=== PATIENT | male | born 1980 | race American Indian/Alaskan Native ===

== ENCOUNTER 2020-01-17 23:40 | Emergency (ER) | payer SELFPAY ==
[2020-01-18] MEDS ORDERED: diphenhydrAMINE 50 MG/ML VIAL ONE (04:00)
[2020-01-18] MEDS ORDERED: LORazepam 2 MG/ML VIAL ONE (04:00)
[2020-01-18] MEDS ORDERED: LORazepam 2 MG/ML VIAL IV ONE (04:04)
[2020-01-18] MEDS ORDERED: ZIPRASIDONE MESYLATE 20 MG VIAL IM ONE (04:04)
[2020-01-18] MEDS ORDERED: diphenhydrAMINE 50 MG/ML VIAL IV ONE (04:04)
[2020-01-18] MEDS ORDERED: WATER FOR INJ Sterile (PF) 10 ML IM ONE (04:11)
--- NOTE | 2020-01-18 04:11 | Emergency Department Report ---
<SURI KUMAR III - Last Filed: 01/18/20 06:36> ED Psych HPI - General Chief Complaint: Psych Stated Complaint: MH EVAL Time Seen by Provider: 01/18/20 03:38 Source: patient Mode of arrival: Ambulatory Limitations: Altered Mental Status - History of Present Illness Initial Comments: Patient is a 39-year-old male who presents emergency room with complaints of being nervous, hallucinations. Patient states he recently got out of custodial. Patient states he was wrong for correction. Patient states nobody cares about him. Patient states people are out to get him. Patient denies suicidal homicidal ideation. MD Complaint: altered mental status -: Sudden Associated Psychiatric Symptoms: racing thoughts, auditory hallucinations, visual hallucinations, delusions History of same: Yes Quality: constant Improves With: none Worsens With: none Context: significant life stressor Associated Symptoms: denies other symptoms. denies: confusion, headache, shortness of breath, nausea, vomiting, syncope, insomnia - Related Data Home Medications Medication Instructions Recorded Confirmed Last Taken AtorvaSTATin [Lipitor] 40 mg PO QHS 01/18/20 01/18/20 Unknown amLODIPine [Norvasc] 10 mg PO DAILY 01/18/20 01/18/20 Unknown atenoloL [Tenormin] 50 mg PO HS 01/18/20 01/18/20 Unknown lamoTRIgine [LaMICtal] 200 mg PO HS 01/18/20 01/18/20 Unknown Previous Rx's Medication Instructions Recorded Last Taken Type OLANzapine [Zyprexa] 10 mg PO DAILY #30 tablet 01/23/20 Unknown Rx hydrOXYzine PAMOATE [Vistaril] 25 mg PO BID PRN #60 capsule 01/23/20 Unknown Rx lamoTRIgine [Lamictal] 100 mg PO BID #60 tablet 01/23/20 Unknown Rx traZODone [Desyrel] 50 mg PO QHS #30 tab 01/23/20 Unknown Rx Allergies Allergy/AdvReac Type Severity Reaction Status Date / Time No Known Allergies Allergy Unverified 01/17/20 23:55 ED Review of Systems Constitutional: denies: chills, fever Eyes: denies: eye pain, eye discharge, vision change ENT: denies: ear pain, throat pain Respiratory: denies: cough, shortness of breath, wheezing Cardiovascular: denies: chest pain, palpitations Endocrine: no symptoms reported Gastrointestinal: denies: abdominal pain, nausea, diarrhea Genitourinary: denies: urgency, dysuria Musculoskeletal: denies: back pain, joint swelling, arthralgia Skin: denies: rash, lesions Neurological: denies: headache, weakness, paresthesias Psychiatric: as per HPI, auditory hallucinations. denies: anxiety, depression Hematological/Lymphatic: denies: easy bleeding, easy bruising ED Past Medical Hx - Past Medical History Previous Medical History?: No - Surgical History Past Surgical History?: No - Family History Family history: no significant - Social History Smoking Status: Never Smoker Substance Use Type: None - Medications Home Medications: Home Medications Medication Instructions Recorded Confirmed Last Taken Type AtorvaSTATin [Lipitor] 40 mg PO QHS 01/18/20 01/18/20 Unknown History amLODIPine [Norvasc] 10 mg PO DAILY 01/18/20 01/18/20 Unknown History atenoloL [Tenormin] 50 mg PO HS 01/18/20 01/18/20 Unknown History lamoTRIgine [LaMICtal] 200 mg PO HS 01/18/20 01/18/20 Unknown History OLANzapine [Zyprexa] 10 mg PO DAILY #30 tablet 01/23/20 Unknown Rx hydrOXYzine PAMOATE [Vistaril] 25 mg PO BID PRN #60 capsule 01/23/20 Unknown Rx lamoTRIgine [Lamictal] 100 mg PO BID #60 tablet 01/23/20 Unknown Rx traZODone [Desyrel] 50 mg PO QHS #30 tab 01/23/20 Unknown Rx ED Physical Exam - General Limitations: No Limitations General appearance: alert, in no apparent distress - Head Head exam: Present: atraumatic, normocephalic - Eye Eye exam: Present: normal appearance - ENT ENT exam: Present: mucous membranes moist - Neck Neck exam: Present: normal inspection - Respiratory Respiratory exam: Present: normal lung sounds bilaterally. Absent: respiratory distress - Cardiovascular Cardiovascular Exam: Present: regular rate, normal rhythm. Absent: systolic murmur, diastolic murmur, rubs, gallop - GI/Abdominal GI/Abdominal exam: Present: soft, normal bowel sounds - Rectal Rectal exam: Present: deferred - Extremities Exam Extremities exam: Present: normal inspection - Back Exam Back exam: Present: normal inspection - Neurological Exam Neurological exam: Present: alert, oriented X3 - Psychiatric Psychiatric exam: Present: agitated, anxious - Expanded Psychiatric Exam Expanded Focused psych exam: Present: pressured speech, internal stimuli, paranoid, restlessness, flight of ideas - Skin Skin exam: Present: warm, dry, intact, normal color. Absent: rash ED Course - Reevaluation(s) Reevaluation #1: Patient's initial evaluation done in triage. Patient refused to come to the back. Patient states he is scared to go to the back. Patient states people are out to get him. Patient had to be escorted by security to room 15. Patient will be given Geodon, Ativan and Benadryl. Patient was placed on a 1013. 01/18/20 03:38 Reevaluation #2: Patient's blood pressure is low. Patient is not tachycardic. Patient sleeping after the medications in room 15. 01/18/20 05:25 Reevaluation #3: Patient's blood pressure is slowly improving. Patient will receive another liter of fluid. 01/18/20 06:05 Reevaluation #4: Patient's current blood pressure is 106/80. Patient signed out to oncoming physician, Dr. Crowe for monitoring her blood pressure. 01/18/20 06:35 ED Medical Decision Making - Lab Data Result diagrams: 01/18/20 04:16 01/18/20 04:16 - Medical Decision Making Patient is a 39-year-old male that presents emergency room with acute psychosis. Patient very paranoid. Patient eventually became agitated and required physical restraint and to be placed in a isolation room. Given Geodon, Ativan and Benadryl. Patient responded well to treatment and was sleeping. Patient been became hypotensive and given fluids and his blood pressure responded well. Patient's labs were done. Patient's labs were essentially unremarkable. [facility] is medically cleared. Patient's final disposition will come from our psychiatry team. - Differential Diagnosis Psychosis, agitation, paranoia, hallucinations ED Disposition Clinical Impression: Acute psychosis, Agitation, Paranoia, Hypertension Disposition: DC-01 TO HOME OR SELFCARE Is pt being admited?: No Does the pt Need Aspirin: No Condition: Stable Instructions: Brief Psychotic Disorder (ED), Hypertension (ED) Additional Instructions: Please follow-up with a primary care physician in the next few days. Please follow-up with the [facility], or any of the outpatient psychiatric referrals that you were given by the psychiatric team. T ramin the medications as prescribed. Return to the emergency department with any worsening of your symptoms, thoughts of harming your self or others, or with any acute distress. Prescriptions: traZODone [Desyrel] 50 mg PO QHS #30 tab lamoTRIgine [Lamictal] 100 mg PO BID #60 tablet hydrOXYzine PAMOATE [Vistaril] 25 mg PO BID PRN #60 capsule PRN Reason: Anxiety OLANzapine [Zyprexa] 10 mg PO DAILY #30 tablet Referrals: PRIMARY CARE, [Primary Care Provider] - 2-3 Days [facility] [Outside] - 3-5 Days [facility] [Provider Group] - 3-5 Days Time of Disposition: 05:59 <KOURTNEY ELLINGTON - Last Filed: 01/23/20 10:54> ED Review of Systems ROS: Stated complaint: MH EVAL Other details as noted in HPI ED Course Vital Signs 01/17/20 01/18/20 01/18/20 23:56 05:22 06:01 Temperature 99.9 F H 98.1 F Pulse Rate 84 63 62 Respiratory 18 21 19 Rate Blood Pressure 153/100 Blood Pressure 71/34 80/37 [Left] O2 Sat by Pulse 98 98 98 Oximetry 01/18/20 01/18/20 01/18/20 06:36 07:04 08:36 Temperature 97.9 F Pulse Rate 68 63 97 H Respiratory 21 20 Rate Blood Pressure Blood Pressure 106/58 96/51 142/85 [Left] O2 Sat by Pulse 100 100 Oximetry 01/18/20 01/19/20 01/19/20 21:14 01:29 08:24 Temperature 99.3 F 98.1 F 97.8 F Pulse Rate 84 80 82 Respiratory 18 18 20 Rate Blood Pressure Blood Pressure 166/97 166/96 180/110 [Left] O2 Sat by Pulse 97 96 100 Oximetry 01/19/20 01/19/20 01/20/20 19:00 20:52 02:00 Temperature 97.1 F L 98.6 F Pulse Rate 79 88 Respiratory 18 18 18 Rate Blood Pressure Blood Pressure 169/89 148/84 [Left] O2 Sat by Pulse 100 100 100 Oximetry 01/20/20 01/21/20 01/22/20 19:30 20:31 09:10 Temperature 98.5 F 98.6 F Pulse Rate 82 91 H Respiratory 18 16 20 Rate Blood Pressure Blood Pressure 136/79 162/106 [Left] O2 Sat by Pulse 100 100 Oximetry 01/22/20 01/22/20 01/22/20 10:13 10:41 19:01 Temperature Pulse Rate 103 H 91 H Respiratory 18 Rate Blood Pressure 151/100 Blood Pressure 151/100 [Left] O2 Sat by Pulse 98 98 Oximetry 01/22/20 01/23/20 01/23/20 20:48 02:07 08:34 Temperature 99.0 F 98.1 F 97.6 F Pulse Rate 66 66 74 Respiratory 18 18 18 Rate Blood Pressure Blood Pressure 118/76 114/69 171/102 [Left] O2 Sat by Pulse 100 100 100 Oximetry ED Medical Decision Making - Lab Data Result diagrams: 01/18/20 04:16 01/18/20 04:16 - Medical Decision Making Patient has been cleared by the psychiatric team. Prescriptions have been written for the patient by the psychiatric team. He has been given outpatient referrals. He has been instructed to return to the emergency department with any worsening of his symptoms, thoughts of harming himself or others, or with any acute distress. Critical care attestation.: If time is entered above; I have spent that time in minutes in the direct care of this critically ill patient, excluding procedure time. ED Disposition Is pt being admited?: No
[2020-01-18 04:44] LABS: Basophils % (Auto) 0.4 % (0.0-1.8); Eosinophils % (Auto) 0.4 % (0.0-4.3); Hemoglobin 14.3 gm/dl (11.8-15.2); Lymphocytes # (Auto) 2.7 K/mm3 (1.2-5.4); Lymphocytes % (Auto) 23.5 % (13.4-35.0); Mean Corpuscular HGB Conc 32 % (32-34); Mean Corpuscular Volume 84 fl (84-94); Monocytes # (Auto) 0.7 K/mm3 (0.0-0.8); Monocytes % (Auto) 6.3 % (0.0-7.3); Platelet Count 266 K/mm3 (140-440); Red Blood Count 5.39 M/mm3 (3.65-5.03); Red Cell Distribution Width 15.7 % (13.2-15.2)
[2020-01-18 04:51] LABS: BUN/Creatinine Ratio 11; Blood Urea Nitrogen 17 mg/dL (9-20); Hemolysis Index 14
[2020-01-18] MEDS ORDERED: SODIUM CHLORIDE 0.9% 1000 ML 1,000 ML ONE (05:15)
[2020-01-18] MEDS ORDERED: SODIUM CHLORIDE 0.9% 1000 ML 1,000 ML IV ONE ×2 (05:26→06:06)
[2020-01-18] MEDS ORDERED: LORazepam 1 MG TAB PO ONE (11:27)
[2020-01-18] MEDS ORDERED: NICOTINE 21 MG/24 HR PATCH TD ONE (11:27)
[2020-01-18 16:24] LABS: Bilirubin,Urine NEG (Negative); Blood,Urine SM (Negative); Color,Urine Yellow (Yellow); Mucus,Urine 1+ /HPF
[2020-01-18 16:25] LABS: Amphetamine Screen,Urine PRESUMPTIVE NEGATIVE; Benzodiazepines Screen,Urine PRESUMPTIVE NEGATIVE; Cannabinoid Screen,Urine PRESUMPTIVE POSITIVE; Cocaine Screen,Urine PRESUMPTIVE NEGATIVE; Methadone Screen,Urine PRESUMPTIVE NEGATIVE; Opiate Screen,Urine PRESUMPTIVE NEGATIVE
--- NOTE | 2020-01-19 11:13 | Consultation ---
History of Present Illness - Reason for Consult Consult date: 01/19/20 Reason for consult: paranoia - History of Present Psychiatric Illness The patient's medical record was reviewed and the patient's progress was discussed with the nursing staff. The nurse note states the patient walking glez he states he is feeling very paranoid and anxious, he says you never know who knows who and he has done alot and his past is catching up to him redirected patient back to room will continue to monitor Unruly Payne is a 39y/o male patient who presented to the ER with paranoia after being released from intermediate yesterday. The patient states he felt like people were after him and felt unsafe. During my interview with the patient he is a/o x 3. He is cooperative. He is talkative. The patient is suspicious and paranoid. He is looking around as we are speaking. He denies SI/HI or hallucinations of any kind. He states, "I've never wanted to hurt myself or anybody, I just feel like people want to hurt me." The patient states, "I don't know why, but I'm just having a hard time adjusting to the free world." He says, "people and noises they scare me and I just feel like something's about to happen to me." He says "yesterday, I was doing crazy things." When asking the patient about his mood he first states, "okay." He then says "afraid." The patient denies any problems with his sleep cycle or appetite. He says he was diagnosed with "bipolar depression in intermediate." The patient says he normally takes "lamictal." The patient says he's "been off his medicine." He denies any illicit drug use, alcohol or nicotine use." He denies any past suicide attempts or psych admissions. Spoke with the patient's spouse. She says she is supportive of the patient and just wants him to get better. She says the patient's sister is willing to pick him up and take him to [place]. She states she is not really in agreement with this because she feels as if it would not benefit the patient. PAST PSYCHIATRIC HISTORY Diagnoses: bipolar depression Suicide attempts or Self-harm behavior: Denies Prior psychiatric hospitalizations: Denies Substance Abuse history: Denies Previous psychiatric medications tried: Lamictal Outpatient treatment: In intermediate PAST MEDICAL HISTORY: None reported Family Psychiatric History: None reported SOCIAL HISTORY Marital Status: Living Arrangements: with spouse Employment Status: Unemployed Access to guns/weapons: Denies Education: High school History of Abuse: Denies Legal History: Incarcerated prior REVIEW OF SYSTEMS Constitutional: Negative for weight loss ENT: Negative for stridor Respiratory: Negative for cough or hemoptysis All other systems reviewed and are negative MENTAL STATUS EXAMINATION General Appearance: Dressed appropriately Behavior: cooperative, suspicious Mood: "okay, afraid" Affect and affective range: Congruent with stated mood Speech: Normal volume, Regular rate and rhythm Thought Process: Goal directed Thought Content: Suicidal Ideation: Suicidal Homicidal Ideation: Homicidal Hallucinations: Denies Delusions: Yes, Paranoia Insight and Judgment: Limited Memory/Cognition: Normal Attention: Normal, Assessment (1) Bipolar disorder with psychotic features Current Visit: Yes Status: Acute (2) Generalized Anxiety Disorder TREATMENT PLAN Start Lamictal 25mg po BID Start Trazodone 50mg po daily Start Olanzapine 2.5mg po daily Start Vistaril 25mg po q6h prn anxiety Risks, benefits and alternatives of medications discussed with the patient, questions answered and consent obtained from patient. PSYCHOTHERAPY: Supportive psychotherapy provided MEDICAL: Per primary team DELIRIUM PRECAUTIONS: Please re-orient patient frequently, keep lights on during the day, and minimize benzodiazepines and opiates as these medications could worsen patient's confusion. TYPE CUTTER: DISPOSITION: Recommend acute inpatient psychiatric hospitalization at this time LEGAL STATUS: 1013 FOLLOW-UP: Will follow Thank you for the consult. Please contact with any questions and/or concerns. Medications and Allergies Allergies Allergy/AdvReac Type Severity Reaction Status Date / Time No Known Allergies Allergy Unverified 01/17/20 23:55 Home Medications Medication Instructions Recorded Confirmed Last Taken Type AtorvaSTATin [Lipitor] 40 mg PO QHS 01/18/20 01/18/20 Unknown History amLODIPine [Norvasc] 10 mg PO DAILY 01/18/20 01/18/20 Unknown History atenoloL [Tenormin] 50 mg PO HS 01/18/20 01/18/20 Unknown History lamoTRIgine [LaMICtal] 200 mg PO HS 01/18/20 01/18/20 Unknown History Mental Status Exam - Vital signs Last Vital Signs Temp 97.8 F 01/19/20 08:24 Pulse 82 01/19/20 08:24 Resp 20 01/19/20 08:24 BP 180/110 01/19/20 08:24 Pulse Ox 100 01/19/20 08:24 Results Result Diagrams: 01/18/20 04:16 01/18/20 04:16 Abnormal lab results 01/18/20 Range/Units Unknown Urine WBC (Auto) 26.0 H (0.0-6.0) /HPF All other labs normal.
[2020-01-19] MEDS ORDERED: ALPRAZolam 0.5 MG TAB ONE (11:18)
[2020-01-19] MEDS ORDERED: LORazepam 1 MG TAB PO ONE (11:20)
[2020-01-19] MEDS ORDERED: ALPRAZolam 0.5 MG TAB PO ONE (11:23)
[2020-01-19] MEDS ORDERED: ZIPRASIDONE MESYLATE 20 MG VIAL IM ONE ×3 (11:30→14:38)
[2020-01-19] MEDS ORDERED: hydrOXYzine PAMOATE 25 MG CAP PO PRN (11:30)
[2020-01-19] MEDS ORDERED: WATER FOR INJ Sterile (PF) 10 ML ONE (11:33)
[2020-01-19] MEDS: lamoTRIgine 25 MG TAB PO SCH ×2 (12:03→22:00)
[2020-01-19] MEDS: traZODone 50 MG TAB PO SCH (22:00)
--- NOTE | 2020-01-20 09:36 | Progress Note ---
Subjective - Reason for Consult Consult date: 01/20/20 Reason for consult: paranoia - Chief Complaint Chief complaint: The patient's medical record was reviewed and the patient's progress was discussed with the nursing station. The nurse note states the patient escorted back into ED by [employer] in handcuffs, pt walked into room with staff and security, handcuffs removed patient laid down. The patient began screaming about someone killing his whole family During my interview with the patient today, he is in the isolation room. The patient is awake. I spoke with the patient behind the glass. He is a/o x 3. He is paranoid and suspicious. He is talkative. He states to me "I heard my 's phone ringing in the other room." The patient then starts telling me, "tell Ananda flores and them I said get at me." I redirected the patient and told him he was no longer in [facility] but in the hospital. The patient shook his head and says, "Oh, man I don't know what's going on." He then starts ranting "someone is using me and people are making bad choices." The patient is redirected once again. He denies SI/HI. He also denies hallucinations of any kind. He describes his mood as "I don't know how I feel." REVIEW OF SYSTEMS Constitutional: Negative for weight loss ENT: Negative for stridor Respiratory: Negative for cough or hemoptysis All other systems reviewed and are negative MENTAL STATUS EXAMINATION General Appearance: Dressed appropriately Behavior: cooperative, suspicious Mood: "I don't know how I feel" Affect and affective range: Congruent with stated mood Speech: talkative Thought Process: Illogical, flight of ideas Thought Content: Suicidal Ideation: Denies Homicidal Ideation: Denies Hallucinations: Denies Delusions: Yes, Paranoia, suspicious Insight and Judgment: Limited Memory/Cognition: Normal Attention: Normal, Assessment (1) Bipolar disorder with psychotic features Current Visit: Yes Status: Acute (2) Generalized Anxiety Disorder TREATMENT PLAN Increased Lamictal 50mg po BID Increased Olanzapine 5mg po daily Start Geodon 20mg q6h prn agitation Risks, benefits and alternatives of medications discussed with the patient, questions answered and consent obtained from patient. PSYCHOTHERAPY: Supportive psychotherapy provided MEDICAL: Per primary team DELIRIUM PRECAUTIONS: Please re-orient patient frequently, keep lights on during the day, and minimize benzodiazepines and opiates as these medications could worsen patient's confusion. CASH POSTING CLERK: DISPOSITION: Recommend acute inpatient psychiatric hospitalization at this time LEGAL STATUS: 1013 FOLLOW-UP: Will follow Thank you for the consult. Please contact with any questions and/or concerns. Mental Status Exam - Vital signs Last Vital Signs Temp 98.6 F 01/20/20 02:00 Pulse 88 01/20/20 02:00 Resp 18 01/20/20 02:00 BP 148/84 01/20/20 02:00 Pulse Ox 100 01/20/20 02:00
[2020-01-20] MEDS ORDERED: ZIPRASIDONE MESYLATE 20 MG VIAL IM PRN (10:00)
[2020-01-20] MEDS: lamoTRIgine 25 MG TAB PO SCH ×2 (14:28→23:25)
[2020-01-20] MEDS: traZODone 50 MG TAB PO SCH (23:26)
--- NOTE | 2020-01-21 10:48 | Progress Note ---
Subjective - Reason for Consult Consult date: 01/21/20 Reason for consult: paranoia - Chief Complaint Chief complaint: The patient's medical record was reviewed and the patient's progress was discussed with the nursing station. During my interview with the patient today, he is in the isolation room. The patient is awake. He is standing at the door staring out of the window as I approach. He is a/o x 3. He is polite. He is more calm today, but looks afraid. The patient is still paranoid. The patient expresses being "scared." He says "my mind keep saying scared and face it. Scared and face it." He is moving his hands up and down as if weighing the two on a scale. He repeats, "scared but face it." When asking the patient what was it that he was scared of and needing to face he replies, "I feel like they out to get me. But in my mind it is what it is." He then says "I can't escape it." The patient says, "but ma'am I do feel better. But I just can't escape what's going on." He denies SI/HI. He also denies hallucinations of any kind, but starts to tell me about "hearing a beep after he hung up yesterday from talking to my ." REVIEW OF SYSTEMS Constitutional: Negative for weight loss ENT: Negative for stridor Respiratory: Negative for cough or hemoptysis All other systems reviewed and are negative MENTAL STATUS EXAMINATION General Appearance: Dressed appropriately Behavior: cooperative, suspicious Mood: "scared" Affect and affective range: Congruent with stated mood Speech: goal directed Thought Process: Illogical, tangential Thought Content: Suicidal Ideation: Denies Homicidal Ideation: Denies Hallucinations: Auditory Delusions: Yes, Paranoia, suspicious Insight and Judgment: Limited Memory/Cognition: Normal Attention: Normal, Assessment (1) Bipolar disorder with psychotic features Current Visit: Yes Status: Acute (2) Generalized Anxiety Disorder TREATMENT PLAN Increased Lamictal 100mg po BID Increased Olanzapine 7.5mg po daily Risks, benefits and alternatives of medications discussed with the patient, questions answered and consent obtained from patient. PSYCHOTHERAPY: Supportive psychotherapy provided MEDICAL: Per primary team DELIRIUM PRECAUTIONS: Please re-orient patient frequently, keep lights on during the day, and minimize benzodiazepines and opiates as these medications could worsen patient's confusion. TRANSITIONS RN CARE COORDINATOR: DISPOSITION: Recommend acute inpatient psychiatric hospitalization at this time LEGAL STATUS: 1013 FOLLOW-UP: Will follow Thank you for the consult. Please contact with any questions and/or concerns. Mental Status Exam - Vital signs Last Vital Signs Temp 98.6 F 01/20/20 02:00 Pulse 88 01/20/20 02:00 Resp 18 01/20/20 19:30 BP 148/84 01/20/20 02:00 Pulse Ox 100 01/20/20 02:00
[2020-01-21] MEDS: lamoTRIgine 25 MG TAB PO SCH (11:49)
[2020-01-21] MEDS: lamoTRIgine 100 MG TAB PO SCH (22:07)
[2020-01-21] MEDS: traZODone 50 MG TAB PO SCH (22:07)
[2020-01-22] MEDS: lamoTRIgine 100 MG TAB PO SCH ×2 (10:02→21:16)
[2020-01-22] MEDS: amLODIPine 10 MG TAB PO SCH (10:41)
--- NOTE | 2020-01-22 12:19 | Progress Note ---
Subjective - Reason for Consult Consult date: 01/22/20 Reason for consult: paranoia - Chief Complaint Chief complaint: The patient's medical record was reviewed and the patient's progress was discussed with the nursing station. The sitter caring for the patient states he's been paranoid. He says the patient will trick you and be calm through the day, but gets very paranoid in the evening. During my interview with the patient today, he is on the phone. He gets off when he sees me waiting to speak with him. The patient is a/o x 3. He seems a little anxious. When telling the patient he appeared anxious he looks away and says, "a little, but I'm just ready to go home." The patient says, "I'm not as paranoid, ma'am." He then says, "I mean a little, but I'm getting better." He says "I've been thinking about how my momma used to keep me locked up." He denies hallucinations of any kind. When asked about SI/HI, the patient laughs and says "not at all." REVIEW OF SYSTEMS Constitutional: Negative for weight loss ENT: Negative for stridor Respiratory: Negative for cough or hemoptysis All other systems reviewed and are negative MENTAL STATUS EXAMINATION General Appearance: Dressed appropriately Behavior: cooperative, Anxious Mood: Anxious Affect and affective range: Congruent with stated mood Speech: goal directed Thought Process: Goal directed, illogical Thought Content: Suicidal Ideation: Denies Homicidal Ideation: Denies Hallucinations: Denies Delusions: Yes, Paranoia, suspicious Insight and Judgment: Limited Memory/Cognition: Normal Attention: Normal, Assessment (1) Bipolar disorder with psychotic features Current Visit: Yes Status: Acute (2) Generalized Anxiety Disorder TREATMENT PLAN Increased Olanzapine 10mg po daily Change Vistaril 25mg po BID Risks, benefits and alternatives of medications discussed with the patient, q uestions answered and consent obtained from patient. PSYCHOTHERAPY: Supportive psychotherapy provided MEDICAL: Per primary team DELIRIUM PRECAUTIONS: Please re-orient patient frequently, keep lights on during the day, and minimize benzodiazepines and opiates as these medications could worsen patient's confusion. WASTEWATER MANAGER: DISPOSITION: Recommend acute inpatient psychiatric hospitalization at this time LEGAL STATUS: 1013 FOLLOW-UP: Will follow Thank you for the consult. Please contact with any questions and/or concerns. Mental Status Exam - Vital signs Last Vital Signs Temp 98.6 F 01/22/20 09:10 Pulse 91 H 01/22/20 10:41 Resp 20 01/22/20 09:10 BP 151/100 01/22/20 10:41 Pulse Ox 98 01/22/20 10:13
[2020-01-22] MEDS: hydrOXYzine PAMOATE 25 MG CAP PO SCH ×2 (13:07→21:16)
[2020-01-22] MEDS ORDERED: atenoloL 50 MG TAB PO SCH (22:00)
[2020-01-23] MEDS: lamoTRIgine 100 MG TAB PO SCH ×2 (06:28→10:44)
[2020-01-23] MEDS: hydrOXYzine PAMOATE 25 MG CAP PO SCH ×2 (06:29→10:43)
[2020-01-23] MEDS: traZODone 50 MG TAB PO SCH (07:10)
--- NOTE | 2020-01-23 10:15 | Progress Note ---
Subjective - Reason for Consult Consult date: 01/23/20 Reason for consult: paranoia - Chief Complaint Chief complaint: The patient's medical record was reviewed and the patient's progress was discussed with the nursing station. The nurse caring for the patient states he's been calm, and cooperative. She says he's exhibited no sighs of paranoia. The nurse note states the patient is calm and cooperative. Patient was moved out of room 15 and placed in 16. Patient appeared to be feeling better and spoke with his over the telephone. Patient was provided with a toothbrush and toothpaste and is currently using the restroom. During my interview with the patient today, he is lying down. He is calm and cooperative. The patient is polite. The patient is a/o x 3. He says "I feel much better." He then says, "I'm a little anxious but, ma'am it's because I'm ready to go home." The patient says he spoke with his family. He says "they keep me calm. I know they are safe and I'm safe." He denies SI/HI, stating "naw, I've never been that." He also denies hallucinations of any kind. The patient denies and fear or feelings of endangerment. The patient gave me permission to speak with his spouse. I spoke with the patient's spouse concerning his progress, treatment plan and discharge plan. The patient's spouse states that she hears it in his voice he is back to himself. She says he calls me and talks to me at night. She says he knows what he has to do. He has to take his meds, and let me know what's going on. She says the patient is accountable for how he feels. The patient's spouse says he has a strong support system. She says she "absolutely positively feels safe with the patient returning home." Advised the patient's spouse that if any fear or feelings of endangerment are to arise she and the patient should seek immediate assistance including the crisis hotline, 911/ER. REVIEW OF SYSTEMS Constitutional: Negative for weight loss ENT: Negative for stridor Respiratory: Negative for cough or hemoptysis All other systems reviewed and are negative MENTAL STATUS EXAMINATION General Appearance: Dressed appropriately Behavior: Calm, cooperative. Polite Mood: anxious, much better Affect and affective range: Congruent with stated mood Speech: Normal tone and pace Thought Process: Goal directed Thought Content: Suicidal Ideation: Denies Homicidal Ideation: Denies Hallucinations: Denies Delusions: None elicited Insight and Judgment: Limited Memory/Cognition: Normal Attention: Normal, Assessment (1) Bipolar disorder with psychotic features Current Visit: Yes Status: Acute (2) Generalized Anxiety Disorder TREATMENT PLAN D/C 1013 Scripts Olanzapine 10mg po daily Trazodone 50mg po qhs Lamictal 100mg po BID Hydroxizine 25mg po BID prn anxiety Risks, benefits and alternatives of medications discussed with the patient, questions answered and consent obtained from patient. PSYCHOTHERAPY: Supportive psychotherapy provided MEDICAL: Per primary team DELIRIUM PRECAUTIONS: Please re-orient patient frequently, keep lights on during the day, and minimize benzodiazepines and opiates as these medications could worsen patient's confusion. SPEECH LANGUAGE PATHOLOGIST PRN: DISPOSITION: Do not recommend acute inpatient psychiatric hospitalization at this time. The patient may discharge with spouse once medically clear. He and his spouse both understand that if feelings of endangerment are to arise they are to seek immediate assistance including the crisis hotline, 911/ER. The patient is to comply with medication and all treatment regimens. He is to establish and follow up with outpatient psych or primary in 7 to 14 days upon discharge. The car spotter to further discuss safety plan and give the patient resources for outpatient psychiatry and cognitive behavioral therapy. Will sign off.Thank you for the consult. Please contact with any questions and/or concerns. Mental Status Exam - Vital signs Last Vital Signs Temp 97.6 F 01/23/20 08:34 Pulse 74 01/23/20 08:34 Resp 18 01/23/20 08:34 BP 171/102 01/23/20 08:34 Pulse Ox 100 01/23/20 08:34
[2020-01-23] MEDS: amLODIPine 10 MG TAB PO SCH (10:44)
[2020-01-23 11:55] VITALS: BP 155/100
== END 2020-01-23 11:53 | disposition home or self-care (01) ==
LOC: EEVIPCON 23:40 → ED 23:40
DX: F23 Brief psychotic disorder (principal); F22 Delusional disorders; Z79.899 Other long term (current) drug therapy
CPT/HCPCS: 36415; 80048; 80307; 81001; 85025; 87086; 96361; 96372; 96374; 96375; 99284; A9270; J1200; J2060; J3486; J7030; Q0177; 80320; G0480